=== PATIENT | female | born 1975 | race Caucasian/White ===

== ENCOUNTER 2025-01-01 23:56 | Emergency (ER) | payer BC ==
[~2025-01-01] VITALS: Ht 157.5 cm; Wt 75.0 kg
[2025-01-02 02:59] LABS: CALCIUM LEVEL 9.2 MG/DL (8.5-10.1); CARBON DIOXIDE LEVEL 23 MMOL/L (20-31); CHLORIDE LEVEL 105 MMOL/L (98-107); CK-MB VALUE MASS 1.7 NG/ML (<3.6); CREATININE FOR GFR 0.71 MG/DL (0.55-1.30); GLOMERULAR FILTRATION RATE > 90.0 (>58); MAGNESIUM LEVEL 1.9 MG/DL (1.8-2.4); POTASSIUM SERUM 4.1 MMOL/L (3.5-5.1); SODIUM LEVEL 139 MMOL/L (136-145)
[2025-01-02 03:04] LABS: CPK CREATINE PHOSPHOKINASE 88 U/L (34-145); MB/CK RELATIVE INDEX 1.93 (< OR =4)
[2025-01-02] MEDS: KETOROLAC 30 MG/ML 1 ML VIAL IV ONE (07:45)
[2025-01-02] MEDS: NS (Normal Saline) 0.9% 1,000 ML IV ONE (07:46)
[2025-01-02 08:11] LABS: BASO # 0.0 10^3/uL (0.0-0.2); BASO % 0.4 % (0.0-1.0); EOS # 0.2 10^3/uL (0.0-0.5); EOS % 1.7 % (0.0-3.0); LYMPH # 2.1 10^3/uL (1.5-5.0); LYMPH % 19.6 % (24.0-44.0); MONO # 0.7 10^3/uL (0.0-0.8); MONO % 6.2 % (2.0-8.0); NEUTROPHILS # 7.6 10^3/uL (1.5-8.5); NEUTROPHILS % 71.9 % (36.0-66.0); PLATELET COUNT, AUTOMATED 250 10^3/uL (150-450)
[2025-01-02 09:15] LABS: HCG, SERUM QUALITATIVE NEGATIVE (NEGATIVE)
[2025-01-02] MEDS: LORazepam 0.5 MG TAB PO STA (09:15)
[2025-01-02] MEDS: diphenhydrAMINE 50 MG/ML VIAL IV STA (09:46)
[2025-01-02] MEDS: ONDANSETRON 4MG 2ML VIAL IV ONE (10:59)
[2025-01-02 11:00] VITALS: BP 144/82; TEMP 97.8; O2SAT 98
== END 2025-01-02 11:14 | disposition home or self-care (01) ==
LOC: M ED 23:56
DX: R51.9 Headache, unspecified (principal); R00.0 Tachycardia, unspecified; I45.81 Long QT syndrome; I10 Essential (primary) hypertension; Z88.2 Allergy status to sulfonamides; Z88.8 Allergy status to other drugs, medicaments and biological substances
CPT/HCPCS: 71045; 80048; 82550; 82553; 83735; 84484; 84703; 85025; 87486; 87581; 87633; 87798; 93005; 96361; 96374; 96375; 99285; J1200; J1885; J2405; J2765